=== PATIENT | female | born 1980 ===

== ENCOUNTER 2018-02-24 13:44 | Outpatient (CLI) | payer OTHER ==
[~2018-02-24 13:44] MED LIST: ANTIVERT25 M1 PO; PEPCID40 MG PO; ZOFRAN4 MG PO
== END 2018-02-24 14:05 | disposition home or self-care (01) ==
LOC: SONOGRAMA 13:44
DX: D25.9 Leiomyoma of uterus, unspecified (principal); N85.2 Hypertrophy of uterus

== ENCOUNTER 2018-02-24 14:51 | Inpatient (IN) | payer OTHER ==
[~2018-02-24] VITALS: Ht 152.4 cm; Wt 64.9 kg
[2018-03-09] MEDS ORDERED: FEOSOL325 MG PO (08:57)
== END 2018-03-09 13:50 | disposition home or self-care (01) | DRG 743 ==
LOC: O/R 03-07 06:02 → OB/GYN 03-07 07:00 → SURH 03-07 16:15
PROVIDERS: Plastic Surgery; Specialist
PROC: 3E0F7GC Introduction of Other Therapeutic Substance into Respiratory Tract, Via Natural or Artificial Opening (ICD-10-PCS; 2018-03-07)
PROC: 0UT90ZZ Resection of Uterus, Open Approach (ICD-10-PCS; principal; 2018-03-07 07:00)
PROC: 0J080ZZ Alteration of Abdomen Subcutaneous Tissue and Fascia, Open Approach (ICD-10-PCS; 2018-03-07 07:00)
DX: N92.0 Excessive and frequent menstruation with regular cycle (principal); N72 Inflammatory disease of cervix uteri; E65 Localized adiposity; J45.20 Mild intermittent asthma, uncomplicated; D64.89 Other specified anemias

== ENCOUNTER 2018-12-31 13:15 | Outpatient (CLI) | payer OTHER ==
[~2018-12-31 13:15] MED LIST changes: +FEOSOL325 MG PO
== END 2018-12-31 13:29 | disposition home or self-care (01) ==
LOC: RAD 13:15
DX: K64.8 Other hemorrhoids (principal); K60.1 Chronic anal fissure; K59.09 Other constipation

== ENCOUNTER 2019-01-05 06:38 | Outpatient (CLI) | payer OTHER ==
[2019-01-05] MEDS ORDERED: XOPENEX0.63 MG/3 (09:14)
== END 2019-01-05 06:43 | disposition home or self-care (01) ==
LOC: LAB 06:38
DX: K64.8 Other hemorrhoids (principal); K60.1 Chronic anal fissure; K59.09 Other constipation

== ENCOUNTER 2019-01-07 05:45 | Day surgery (SDC) | payer OTHER ==
[~2019-01-07 05:45] MED LIST changes: +XOPENEX0.63 MG/3
[2019-01-07] MEDS ORDERED: PERCOCET 5-3251 EACH PO (10:55)
[2019-01-07] MEDS ORDERED: RECTICARE30 GM TOP (10:58)
[2019-01-07] MEDS ORDERED: KETO10TA2 PO (10:58)
== END 2019-01-07 13:55 | disposition home or self-care (01) ==
LOC: CIR.AMB 05:45
DX: K60.1 Chronic anal fissure (principal)

== ENCOUNTER 2020-11-20 18:10 | Emergency (ER) | payer OTHER ==
[~2020-11-20] VITALS: Ht 160 cm; Wt 65.8 kg
[~2020-11-20 18:10] MED LIST changes: +KETO10TA2 PO; +PERCOCET 5-3251 EACH PO; +RECTICARE30 GM TOP
== END 2020-11-20 19:00 | disposition home or self-care (01) ==
LOC: ER 18:10
DX: S61.221A Laceration with foreign body of left index finger without damage to nail, initial encounter (principal); W45.8XXA Other foreign body or object entering through skin, initial encounter; Y93.89 Activity, other specified; Y92.098 Other place in other non-institutional residence as the place of occurrence of the external cause; Y99.8 Other external cause status